=== PATIENT | male | born 1970 | race Caucasian/White ===

== ENCOUNTER 2021-11-19 11:00 | Emergency (ER) | payer OTHER ==
[2021-11-19 11:37] VITALS: BMI 30.6
[2021-11-19] MEDS ORDERED: CASIRIVIMAB/IMDEVIMAB 10 ML in SODIUM CHLORIDE 100 ML IVPB ONE (12:19)
[2021-11-19 13:13] VITALS: BP 147/91; PULSE 82; TEMP 99
== END 2021-11-19 15:00 | disposition home or self-care (01) ==
LOC: JCOVINFU 11:00
PROC: 3E033GC Introduction of Other Therapeutic Substance into Peripheral Vein, Percutaneous Approach (ICD-10-PCS; principal; 2021-11-19)
DX: U07.1 COVID-19 (principal)
CPT/HCPCS: 96365; 99284-25